=== PATIENT | male | born 1995 | race Caucasian/White ===

== ENCOUNTER 2021-07-22 17:27 | Emergency (ER) | payer OTHER ==
[~2021-07-22] VITALS: Ht 182.9 cm; Wt 109.1 kg
[2021-07-22 17:28] VITALS: BP 149/85; PULSE 109; TEMP 97.5
[2021-07-22 18:00] LABS: COLLECTION METHOD CLEAN CATCH
[2021-07-22 18:07] LABS: BASO % 0.5 % (0.0-2.0); EOS # 0.1 K/mm3 (0.0-0.7); EOS % 1.6 % (0.0-4.0); GRAN # 4.2 K/mm3 (1.4-6.5); GRAN % 56.9 % (42.2-75.2); HEMATOCRIT 44.1 % (42.0-52.0); HEMOGLOBIN 14.8 g/dl (13.5-18.0); LYMPH # 2.4 K/mm3 (1.2-3.4); LYMPH % 32.1 % (20.0-51.0); MEAN CELL VOLUME 92 fl (80.0-100.0); MEAN CORPUSCULAR HEMOGLOBIN 31 pg (27-31); MEAN CORPUSCULAR HGB CONC 34 g/dl (33.0-37.0); MEAN PLATELET VOLUME 9.6 fl (7.4-10.4); MONO # 0.6 K/mm3 (0.1-0.6); MONO % 8.4 % (1.7-9.3); MUCOUS Present (NOT PRESENT); PH 5 (5-8); PLATELET COUNT 246 K/mm3 (130-400); REDCELL DISTRIBUTION WIDTH-CV 15.5 % (11.5-14.5); SQUAMOUS EPITHELIAL None Seen /hpf (0-10); URINE APPEARANCE Clear (CLEAR/HAZY); URINE BACTERIA None Seen /hpf (NONE SEEN); URINE BILIRUBIN Negative (NEGATIVE); URINE BLOOD Negative (NEGATIVE); URINE COLOR Yellow (YELLOW); URINE GLUCOSE Negative (NEGATIVE); URINE KETONE Negative (NEGATIVE); URINE LEUKOCYTE ESTERASE Negative (NEGATIVE); URINE NITRATE Negative (NEGATIVE); URINE PROTEIN(semi-quant) 1+ (NEGATIVE); URINE RBC 0-2 /hpf (0-2); URINE UROBILINOGEN Negative (NEGATIVE)
[2021-07-22 18:26] LABS: ALBUMIN 3.9 gm/dL (3.5-5.0); BILIRUBIN,TOTAL 0.4 mg/dL (0.2-1.2); C-REACTIVE PROTEIN 1.93 mg/dL (0.00-0.50); CALCIUM 8.6 mg/dL (8.4-10.2); CREATININE, serum 0.93 mg/dL (0.72-1.25); POTASSIUM 4.6 mmol/L (3.5-4.5); TOTAL PROTEIN 7.4 gm/dL (6.2-8.1)
[2021-07-22 18:28] LABS: TRICYCLIC ANTIDEPRESS URINE NEGATIVE
== END 2021-07-22 20:39 | disposition home or self-care (01) ==
LOC: COL.ER 17:27
PROVIDERS: Nurse Practitioner
DX: F10.129 Alcohol abuse with intoxication, unspecified (principal); R10.13 Epigastric pain; Z28.310 Unvaccinated for COVID-19; Y90.8 Blood alcohol level of 240 mg/100 ml or more
CPT/HCPCS: J7030

== ENCOUNTER 2021-10-02 19:07 | Inpatient (IN) | payer OTHER ==
[~2021-10-02] VITALS: Ht 180.3 cm; Wt 115.0 kg
[2021-10-02 20:03] LABS: BASO % 0.6 % (0.0-2.0); EOS % 0.3 % (0.0-4.0); GRAN # 3.6 K/mm3 (1.4-6.5); GRAN % 53.3 % (42.2-75.2); HEMATOCRIT 44.5 % (42.0-52.0); HEMOGLOBIN 15.9 g/dl (13.5-18.0); LYMPH # 2.7 K/mm3 (1.2-3.4); LYMPH % 40.5 % (20.0-51.0); MEAN CELL VOLUME 86 fl (80.0-100.0); MEAN CORPUSCULAR HEMOGLOBIN 31 pg (27-31); MEAN CORPUSCULAR HGB CONC 36 g/dl (33.0-37.0); MEAN PLATELET VOLUME 10.4 fl (7.4-10.4); MONO # 0.3 K/mm3 (0.1-0.6); PLATELET COUNT 79 K/mm3 (130-400); RED BLOOD COUNT 5.17 M/mm3 (4.20-5.60); REDCELL DISTRIBUTION WIDTH-CV 14.2 % (11.5-14.5)
[2021-10-02 20:07] LABS: ACETONE,SERUM NEGATIVE
[2021-10-02 20:11] LABS: ALANINE AMINOTRANSFERASE 57 U/L (0-55); ALBUMIN 3.9 gm/dL (3.5-5.0); ALKALINE PHOSPHATASE 63 U/L (40-150); ANION GAP 19 mmol/L (7-16); AST,SGOT 89 U/L (5-34); BILIRUBIN,TOTAL 0.5 mg/dL (0.2-1.2); BLOOD UREA NITROGEN 9 mg/dL (9-21); CALCIUM 8.3 mg/dL (8.4-10.2); CARBON DIOXIDE 24 mmol/L (22-29); CHLORIDE 97 mmol/L (98-107); CREATININE, serum 0.87 mg/dL (0.72-1.25); GLUCOSE 185 mg/dL (70-99); POTASSIUM 3.9 mmol/L (3.5-4.5); SODIUM 140 mmol/L (136-145); TOTAL PROTEIN 7.3 gm/dL (6.2-8.1)
[2021-10-02 20:17] LABS: TROPONIN-I 0.021 ng/mL (0.00-0.033)
[2021-10-02 20:26] LABS: LIPASE 455 U/L (8-78)
[2021-10-02 20:30] LABS: ALCOHOL(ethanol),MEDICAL 452 mg/dL (0-10)
[2021-10-02 20:43] LABS: OSMOLALITY-SERUM 411 Osm/kg (275-300)
[2021-10-03] VITALS (151 sets, daily range): BP systolic 168–180; BP diastolic 83–105; PULSE 92–129; O2SAT 88–98
[2021-10-03 00:30] LABS: TRICYCLIC ANTIDEPRESS URINE NEGATIVE
[2021-10-04] VITALS (1312 sets, daily range): BP systolic 96–173; BP diastolic 0–83; PULSE 70–93; TEMP 97.7–98.9; O2SAT 83–100
[2021-10-04 07:10] LABS: CALCIUM 9.1 mg/dL (8.4-10.2); CREATININE, serum 1.08 mg/dL (0.72-1.25); MAGNESIUM 1.9 mg/dL (1.6-2.6); POTASSIUM 4.2 mmol/L (3.5-4.5)
[2021-10-04 07:30] LABS: HEMATOCRIT 39.4 % (42.0-52.0); MEAN CELL VOLUME 89 fl (80.0-100.0); MEAN CORPUSCULAR HGB CONC 35 g/dl (33.0-37.0); MEAN PLATELET VOLUME 10.7 fl (7.4-10.4); RED BLOOD COUNT 4.44 M/mm3 (4.20-5.60); REDCELL DISTRIBUTION WIDTH-CV 14.1 % (11.5-14.5)
[2021-10-04 07:36] LABS: HEMOGLOBIN 13.7 g/dl (13.5-18.0); MEAN CORPUSCULAR HEMOGLOBIN 31 pg (27-31)
[2021-10-04 07:39] LABS: PLATELET COUNT 33 K/mm3 (130-400)
[2021-10-04 08:00] LABS: BAND 4 % (0-10); LYMPHOCYTE 16 % (20.0-51.0); NEUTROPHILS 76 % (42.0-75.2); PLATELET ESTIMATE DECREASED (NORMAL)
[2021-10-05] VITALS (1178 sets, daily range): BP systolic 90–172; BP diastolic 52–116; PULSE 61–101; TEMP 97.8–98.2; O2SAT 84–100
[2021-10-05 06:20] LABS: BASO % 0.6 % (0.0-2.0); EOS # 0.2 K/mm3 (0.0-0.7); EOS % 3.4 % (0.0-4.0); GRAN # 3.7 K/mm3 (1.4-6.5); GRAN % 57.9 % (42.2-75.2); HEMATOCRIT 40.2 % (42.0-52.0); HEMOGLOBIN 14.1 g/dl (13.5-18.0); LYMPH % 31.5 % (20.0-51.0); MEAN CELL VOLUME 89 fl (80.0-100.0); MEAN CORPUSCULAR HEMOGLOBIN 31 pg (27-31); MEAN CORPUSCULAR HGB CONC 35 g/dl (33.0-37.0); MONO # 0.4 K/mm3 (0.1-0.6); MONO % 6.3 % (1.7-9.3); RED BLOOD COUNT 4.54 M/mm3 (4.20-5.60); REDCELL DISTRIBUTION WIDTH-CV 13.6 % (11.5-14.5)
[2021-10-05 06:34] LABS: PLATELET COUNT 38 K/mm3 (130-400)
[2021-10-05 06:39] LABS: CALCIUM 9.4 mg/dL (8.4-10.2); CREATININE, serum 0.87 mg/dL (0.72-1.25); POTASSIUM 3.3 mmol/L (3.5-4.5)
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
[2021-10-06] VITALS (571 sets, daily range): BP systolic 112–166; BP diastolic 68–115; PULSE 65–98; TEMP 97.4–98.5; O2SAT 77–100
--- NOTE | 2021-10-06 03:03 | NUR ---
PATIENT REFUSING PRECEDEX--DRIP HELD.
[2021-10-06 06:03] LABS: BASO % 0.4 % (0.0-2.0); EOS # 0.2 K/mm3 (0.0-0.7); EOS % 3.6 % (0.0-4.0); GRAN % 64.2 % (42.2-75.2); HEMATOCRIT 38.8 % (42.0-52.0); HEMOGLOBIN 13.4 g/dl (13.5-18.0); LYMPH # 1.1 K/mm3 (1.2-3.4); LYMPH % 22.5 % (20.0-51.0); MEAN CELL VOLUME 89 fl (80.0-100.0); MEAN CORPUSCULAR HEMOGLOBIN 31 pg (27-31); MEAN CORPUSCULAR HGB CONC 35 g/dl (33.0-37.0); MEAN PLATELET VOLUME 11.4 fl (7.4-10.4); MONO # 0.4 K/mm3 (0.1-0.6); MONO % 8.9 % (1.7-9.3); RED BLOOD COUNT 4.35 M/mm3 (4.20-5.60); REDCELL DISTRIBUTION WIDTH-CV 13.5 % (11.5-14.5)
[2021-10-06 06:06] LABS: PLATELET COUNT 45 K/mm3 (130-400)
[2021-10-06 06:19] LABS: ALBUMIN 3.4 gm/dL (3.5-5.0); BILIRUBIN,TOTAL 1.1 mg/dL (0.2-1.2); CREATININE, serum 0.88 mg/dL (0.72-1.25); POTASSIUM 3.6 mmol/L (3.5-4.5); TOTAL PROTEIN 6.4 gm/dL (6.2-8.1)
[2021-10-06 06:25] LABS: BILIRUBIN,DIRECT 0.4 mg/dL (0.0-0.5)
--- NOTE | 2021-10-06 10:21 | NUR ---
REPORT RECEIVED FROM NATHANAEL MCELROY; PATIENT RESTING IN BED; VITAL SIGNS ARE NORMAL WITH THE EXCEPTION OF BLOOD PRESSURE WHICH HAS BEEN ELEVATED TO ETOH WITHDRAWALS. PATIENT CONTINUES TO RECEIVE PAIN MEDS FOR PANCREATITIS AND ATIVAN PER CIWA SCORES.
--- NOTE | 2021-10-06 13:45 | NUR ---
GAVE REPORT TO NATHANAEL PAREDES; TRANSPORTED PATIENT UPSTAIRS TO MEDICAL FLOOR AT APPROX 1330
--- NOTE | 2021-10-06 14:30 | NUR ---
Pt lying down in bed just transferred from ICU unit to medical unit. A&O x4. He states he is having abdominal pain scored at 8/10 and the pain medication he received is not working. He states that he usually has 2 mg of dilaudid for pain when he is hospitalized. He also states that he receives propranolol, creon, PRN Blood pressure medication. Telemetry on, leads got fixed. Charge nurse was reported about pain. Call light within reach.
[2021-10-06] MEDS ORDERED: CREON 120000 U-1 ECC PO (15:52)
[2021-10-06] MEDS ORDERED: INDERAL60 MG PO (15:58)
[2021-10-06] MEDS ORDERED: MICROZIDE12.5 MG PO (16:02)
--- NOTE | 2021-10-06 16:45 | NUR ---
Pt lying down in bed. Pain assessment completed. pt reports pain meds are not helping at all. Hospitalist was reported that the pt scored his pain at 7/10 after receiving pain med. New orders for pain medication placed by hospitalist. Call light within reach.
--- NOTE | 2021-10-06 18:00 | NUR ---
PRN dilaudid given for abd pain rated an 8/10. PRN zofran and immodium also given per orders.
--- NOTE | 2021-10-06 18:25 | NUR ---
Pt lying down in bed. A&O x4. BP still trending high 166/88. Had few episodes of loose stools. He reports his abdominal pain is not improving with any pain medication. Pt also reported some mild nausea and it was reported to charge nurse. Pt was having some appetite but he expressed that his pain was aggravated right after trying to eat his dinner. Call light within reach.
--- NOTE | 2021-10-06 22:17 | NUR ---
Patient assessed around 2100. Given PRN [place] and Dilaudid for level 7 pain to abdomen as requested. Continues on Detox protocol. Scored a 7 and given PRN Ativan per protocol. Voices no questions, needs, or concerns at this time. About to get in shower.
[2021-10-07] VITALS (13 sets, daily range): BP systolic 143–164; BP diastolic 74–106; PULSE 71–107; TEMP 97.5–98.8
--- NOTE | 2021-10-07 05:45 | NUR ---
Patient received PRN Ativan during the night per detox protocol. Also recieved PRN Dilaudid and [place] as requested every 4 hours during the night for pain. Only drank fluids during the night, no food. Did take shower and stated it helped him feel better. Voices no questions, needs, or concerns at this time. In bed with call light within reach.
[2021-10-07 06:48] LABS: BASO % 0.5 % (0.0-2.0); EOS # 0.1 K/mm3 (0.0-0.7); EOS % 2.9 % (0.0-4.0); GRAN # 2.4 K/mm3 (1.4-6.5); HEMATOCRIT 39.6 % (42.0-52.0); HEMOGLOBIN 13.6 g/dl (13.5-18.0); LYMPH # 1.1 K/mm3 (1.2-3.4); LYMPH % 26.6 % (20.0-51.0); MEAN CELL VOLUME 90 fl (80.0-100.0); MEAN CORPUSCULAR HEMOGLOBIN 31 pg (27-31); MEAN CORPUSCULAR HGB CONC 34 g/dl (33.0-37.0); MONO # 0.4 K/mm3 (0.1-0.6); MONO % 10.5 % (1.7-9.3); PLATELET COUNT 62 K/mm3 (130-400); RED BLOOD COUNT 4.42 M/mm3 (4.20-5.60); REDCELL DISTRIBUTION WIDTH-CV 13.9 % (11.5-14.5)
[2021-10-07 06:57] LABS: CALCIUM 8.9 mg/dL (8.4-10.2); CREATININE, serum 0.79 mg/dL (0.72-1.25); POTASSIUM 3.5 mmol/L (3.5-4.5)
--- NOTE | 2021-10-07 09:22 | NUR ---
PT RESTING IN BED. MORNING MEDICATIONS GIVEN. SHIFT ASSESSMENT COMPLETED. PT COMPLAINING OF ABDOMINAL PAIN AT THIS TIME, PRN MEDICATION GIVEN PER eMAR. PT DENIES ANY OTHER PAIN OR NEEDS. PT STATES HE HAS NOT HAD A LOOSE STOOL SINCE LAST NIGHT. CONTINUING TO MONITOR.
[2021-10-08 01:56] VITALS: BP 154/111; PULSE 75; TEMP 98.1
--- NOTE | 2021-10-08 02:36 | NUR ---
Patient assessed around 2054. Given PRN Ativan and [place] for detox and pain, and took again around 99. Patient pleasant, cooperative, and compliant with cares. Voices no further questions, needs, or concerns at this time. In bed with call light within reach.
[2021-10-08 03:40] VITALS: BP 126/84; PULSE 73; TEMP 97.5
[2021-10-08 05:53] VITALS: BP 145/90; PULSE 69; TEMP 97.9
[2021-10-08 07:35] VITALS: BP 150/84; PULSE 69; TEMP 98
[2021-10-08 10:16] VITALS: BP 145/77; PULSE 85
--- NOTE | 2021-10-08 10:22 | NUR ---
Patient independent in the room. Complaints of pain in central abdomen. Notes nausea after eating, states it is baseline for him. Neurologically intact. Meds taken with no complaint or concern. Patient hopes for discharge today. Takiing pain meds Q4.
--- NOTE | 2021-10-08 10:37 | NUR ---
House Cleaner Supervisor attended physician rounds: Patient BROOKLYNN is 7 this morning; he will not discharge today. restaurant worker continues to follow. *Discharge plan: to home with outpatient substance use disorder treatment three days a week via telehealth through [facility] and mental health care through [facility].*
[2021-10-08] MEDS ORDERED: VALIUM 5MG T5 MG/TAB PO (10:52)
[2021-10-08] MEDS ORDERED: VALIUM 2MG T2 MG/TAB PO (10:52)
[2021-10-08] MEDS ORDERED: ULTRAM 50MG TAB50 MG PO (10:52)
[2021-10-08] MEDS ORDERED: DUO-KAPS1 CAP PO (10:55)
[2021-10-08] MEDS ORDERED: FOLIC ACID 11 MG/TA1 PO (10:55)
--- NOTE | 2021-10-08 11:51 | NUR ---
Patient IV discontinued, tele removed and discharge paperwork discussed. Patient dressed self. Patient verbalized understanding of discharge information, no questions or concerns. Patient walked out with VERO Reyes as escort to ride (patient Mother).
== END 2021-10-08 11:53 | disposition home or self-care (01) | DRG 896 ==
LOC: COL.ER 19:07 → ICU 10-03 14:38 → MEDICAL 10-06 14:45
PROVIDERS: Emergency Medicine; Emergency Medicine Emergency Medical Services; ADMIT Student in an Organized Health Care Education/Training Program
DX: F10.231 Alcohol dependence with withdrawal delirium (principal); K85.90 Acute pancreatitis without necrosis or infection, unspecified; I10 Essential (primary) hypertension; F41.9 Anxiety disorder, unspecified; R73.9 Hyperglycemia, unspecified; K76.0 Fatty (change of) liver, not elsewhere classified; D69.6 Thrombocytopenia, unspecified; Y90.8 Blood alcohol level of 240 mg/100 ml or more
CPT/HCPCS: 99239; J1170; J2060; J2270; J2405; J2560; J3010; J3411; J3475; J3480; J3486; J7030; J7120; Q9967